=== PATIENT | female | born 1965 | race Hispanic/Latino ===

== ENCOUNTER 2023-08-04 09:52 | Emergency (ER) | payer BC ==
[~2023-08-04] VITALS: Ht 157.5 cm; Wt 113.4 kg
[2023-08-04] MEDS ORDERED: MORPHINE 4 MG SYG IM ONE (11:30)
[2023-08-04 11:51] LABS: BASOPHILS # (AUTO) 0.02 K/uL (0.00-0.20); BASOPHILS % (AUTO) 0.2 % (0.0-5.0); EOSINOPHILS # (AUTO) 0.18 K/uL (0.00-0.70); EOSINOPHILS % (AUTO) 1.9 % (0.0-8.0); HEMATOCRIT 47.9 % (36-48); IMMATURE GRANULOCYTE ABSOLUTE 0.06 K/uL (0-1); LYMPHOCYTES # (AUTO) 2.2 K/uL (1.0-4.8); LYMPHOCYTES % (AUTO) 22.2 % (21.0-51.0); MEAN CORPUSCULAR HEMOGLOBIN 29.5 pg (27.0-33.0); MEAN CORPUSCULAR HGB CONC 31.9 g/dL (32.0-36.0); MEAN CORPUSCULAR VOLUME 92.3 fL (79-99); MONOCYTES # (AUTO) 0.7 K/uL (0.1-1.0); MONOCYTES % (AUTO) 6.7 % (3.0-13.0); NEUTROPHILS # (AUTO) 6.6 K/uL (1.8-7.7); NEUTROPHILS % (AUTO) 68.4 % (40.0-77.0); PLATELET COUNT (AUTO) 198 K/uL (130-400); RED BLOOD CELL COUNT(AUTO) 5.19 MIL/uL (4.00-5.50); RED CELL DISTRIBUTION WIDTH 13.2 % (11.0-15.5); WHITE BLOOD COUNT (AUTO) 9.7 K/uL (4.8-10.8)
[2023-08-04 11:57] LABS: CREATININE 0.7 mg/dL (0.5-1.5); POTASSIUM 4.5 mmol/L (3.5-5.1)
[2023-08-04 12:02] LABS: ALBUMIN 3.4 g/dL (3.5-5.0); BILIRUBIN,TOTAL 0.5 mg/dL (0.2-1.0); TOTAL PROTEIN, SERUM 6.9 g/dL (6.0-8.3); URIC ACID 5.2 mg/dL (2.6-7.2)
[2023-08-04] MEDS ORDERED: DEXAMETHASONE SOD PHOSPHATE 4 MG/ML 1ML VIAL IM ONE (13:00)
[2023-08-04] MEDS ORDERED: PRED20TA3 PO (13:03)
[2023-08-04] MEDS ORDERED: IBUP-2070 PO (13:03)
[2023-08-04 13:33] VITALS: BP 130/60; PULSE 52; RESP 18; O2SAT 97
== END 2023-08-04 13:53 | disposition home or self-care (01) ==
LOC: EDH 09:52
DX: M25.571 Pain in right ankle and joints of right foot (principal); Z90.49 Acquired absence of other specified parts of digestive tract
CPT/HCPCS: 99284; 84550; 80053; 85025; 86140; 36415; 73630; 73502; 96372 ×2; J1100; J2270

== ENCOUNTER 2024-12-15 21:05 | Emergency (ER) | payer BC ==
[~2024-12-15] VITALS: Ht 157.5 cm; Wt 105.7 kg
[~2024-12-15 21:05] MED LIST: IBUP-2070 PO; PRED20TA3 PO
--- NOTE | 2024-12-15 21:08 | NUR ---
UA CUP PROVIDED
--- NOTE | 2024-12-15 22:04 | ERN ---
ED Note History of Present Illness Stated Complaint: ABD PAIN RADIATING TO BACK Chief Complaint: Abdominal Pain Time Seen by MD: 21:34 Time Seen by Midlevel: 21:45 Dictation: Ms. Macho Herrmann is a 59-year-old female with history of obesity who presented to the emergency department this evening for evaluation of abdominal pain. She reports upper/lateral abdominal pain radiating to the back which is worse with position change. She also has tenderness to the right upper quadrant of the abdomen. She does state she had a cholecystectomy in 2013. She also reports at least one year of right low back pain/right hip pain. She denies having any fever, chills, shortness of breath, cough, chest pain, palpitations, edema, nausea, vomiting, diarrhea, dysuria, headache, or dizziness. She denies use of alcohol or recreational drugs. She states she had been taking some Mucinex and some [id number] Tylenol but no more than recommended. Allergies: Coded Allergies: No Known Drug Allergies (Verified Allergy, 12/02/13) Home Meds Active Scripts Prednisone (Prednisone) 20 Mg Tablet, 1 TAB PO AD for 3 Days, #6 TAB 0 Refills TAKE 1 TAB BY MOUTH THREE TIMES PER DAY X1 DAYS, THEN TAKE 1 TAB BY MOUTH TWICE A DAY X1 DAYS, THEN TAKE 1 TAB BY MOUTH ONCE A DAY X1 DAY. Prov:ELI BENSON MD 08/04/23 Ibuprofen (Ibuprofen) 600 Mg Tablet, 600 MG PO Q6H PRN for PAIN, #30 TAB Prov:ELI BENSON MD 08/04/23 Past Medical History Past Medical History: No Pertinent History Surgical History: Cholecystectomy, Other Surgical History Other: RT BREAST MASS PSYCH History: no pertinent psych hx Social History: Negative, Lives with family History: Not Applicable RN Note Reviewed/Agreed w/PFSH: Yes Review of System Dictation REVIEW OF SYSTEMS: CONSTITUTIONAL: Patient denies fevers, chills, sweats and weight changes. EYES: Patient denies any visual symptoms. EARS, NOSE, AND THROAT: No difficulties with hearing. No symptoms of rhinitis or sore throat. CARDIOVASCULAR: Patient denies chest pains, palpitations, orthopnea and paroxysmal nocturnal dyspnea. RESPIRATORY: No dyspnea on exertion, no wheezing or cough. GI: No nausea, vomiting, diarrhea, constipation, hematochezia or melena. Reports right lateral and right upper quadrant abdominal pain radiating to the back : No urinary hesitancy or dribbling. No nocturia or urinary frequency. No abnormal urethral discharge. MUSCULOSKELETAL: Reports right-sided back pain. NEUROLOGIC: No chronic headaches, no seizures. Patient denies numbness, tingling or weakness. PSYCHIATRIC: Patient denies problems with mood disturbance. No problems with anxiety. ENDOCRINE: No excessive urination or excessive thirst. DERMATOLOGIC: Patient denies any rashes or skin changes. Initial Vital Sign VS Vital Signs Date Time Temp Pulse Resp B/P (MAP) Pulse Ox O2 Delivery O2 Flow Rate FiO2 12/15/24 21:06 97.7 80 17 171/98 98 Room Air 12/15/24 23:00 0 21 Physical Exam Dictation Vital signs: Reviewed. Afebrile Constitutional: No acute distress. Non-toxic appearing. Head/Face: Normocephalic, atraumatic. Eyes: Periorbital areas with no swelling, redness, or edema. Lids and lashes are normal. Conjunctival injection is absent. Sclera anicteric. Pupils equal, round, reactive to light. ENT: Pinnas intact and no signs of trauma or erythema. Ear canals clear and no discharge. TMs no erythema. No nasal discharge or bleeding noted. Oropharynx with no exudate, redness, swelling, masses, exudates, or evidence of obstruction. Uvula midline. Mucous membranes moist. Neck: Trachea midline, no masses palpated, and no cervical lymphadenopathy. No swelling. Supple, full range of motion. Chest/Axilla: No tenderness, no crepitus, no paradoxical movement, no retractions. Cardiovascular: Regular rate, regular rhythm, no murmur, no gallops. Symmetric pulses. No peripheral edema. Normotensive Respiratory: Respirations even and unlabored. Lung sounds clear; no wheezes, ra les or rhonchi. Room air SpO2 98% Gastrointestinal: Obese No distention is appreciated. Bowel sounds are normal. Tenderness upon palpation right upper quadrant. T tenderness right lateral abdomen. No rebound. No rigidity. No voluntary or involuntary guarding. No Miranda's sign. Neurological: Normal speech, gross motor function intact, gross sensory function intact. No focal weakness/Paresthesia. Musculoskeletal/Extremities: All extremities have full range of motion, no pain or tenderness on palpation. Symmetric pulses. Integumentary: Intact. Skin is normal color, warm and dry. Cap refill less than 2 seconds. Results (Laboratory/Radiology) Laboratory/Radiology Laboratory Tests Test 12/15/24 22:22 White Blood Count 11.4 K/uL (4.8-10.8) H Red Blood Count 5.13 MIL/uL (4.00-5.50) Hemoglobin 15.1 g/dL (12.0-16.0) Hematocrit 47.4 % (36-48) Mean Corpuscular Volume 92.4 fL (79-99) Mean Corpuscular Hemoglobin 29.4 pg (27.0-33.0) Mean Corpuscular Hemoglobin Concent 31.9 g/dL (32.0-36.0) L Red Cell Distribution Width 12.9 % (11.0-15.5) Platelet Count 181 K/uL (130-400) Mean Platelet Volume 10.9 fL (7.5-10.5) H Immature Granulocyte % (Auto) 0.4 % (0-1) Neutrophils (%) (Auto) 66.6 % (40.0-77.0) Lymphocytes (%) (Auto) 23.6 % (21.0-51.0) Monocytes (%) (Auto) 7.3 % (3.0-13.0) Eosinophils (%) (Auto) 1.9 % (0.0-8.0) Basophils (%) (Auto) 0.2 % (0.0-5.0) Neutrophils # (Auto) 7.6 K/uL (1.8-7.7) Lymphocytes # (Auto) 2.7 K/uL (1.0-4.8) Monocytes # (Auto) 0.8 K/uL (0.1-1.0) Eosinophils # (Auto) 0.22 K/uL (0.00-0.70) Basophils # (Auto) 0.02 K/uL (0.00-0.20) Absolute Immature Granulocyte (auto 0.05 K/uL (0-1) Nucleated Red Blood Cells 0.0 % (0.0-0.19) Urine Color LIGHT-YELLOW (YELLOW) Urine Appearance CLEAR (CLEAR) Urine pH 5.5 (5.0-8.0) Urine Specific [place] 1.015 (1.001-1.031) Urine Protein NEGATIVE mg/dL (NEGATIVE) Urine Glucose (UA) NEGATIVE mg/dL (NEGATIVE) Urine Ketones NEGATIVE mg/dL (NEGATIVE) Urine Occult Blood MODERATE (NEGATIVE) H Urine Nitrate NEGATIVE (NEGATIVE) Urine Bilirubin NEGATIVE mg/dL (NEGATIVE) Urine Urobilinogen 0.2 mg/dL (0.2-1.0) Urine Leukocyte Esterase NEGATIVE Eliot/uL Urine RBC 6-10 /HPF (0-1) H Urine WBC 2-5 /HPF (0-1) H Urine Squamous Epithelial Cells FEW /HPF (0-2) Urine Bacteria None /HPF (None Seen) Sodium Level 133 mmol/L (136-145) L Potassium Level 3.8 mmol/L (3.5-5.1) Chloride Level 96 mmol/L (101-111) L Carbon Dioxide Level 36 mmol/L (21-32) H Blood Urea Nitrogen 13 mg/dL (7-18) Creatinine 0.7 mg/dL (0.5-1.0) Glomerular Filtration Rate Calc 98 mL/min (>90) Random Glucose 119 mg/dL (70-105) H Total Calcium 8.7 mg/dL (8.5-10.1) Total Bilirubin 0.5 mg/dL (0.2-1.0) Direct Bilirubin 0.1 mg/dL (0.0-0.3) Aspartate Amino Transf (AST/SGOT) 42 U/L (10-37) H Alanine Aminotransferase (ALT/SGPT) 52 U/L (12-78) Alkaline Phosphatase 71 U/L (50-136) Total Protein 7.4 g/dL (6.0-8.3) Albumin 3.4 g/dL (3.5-5.0) L Lipase 90 U/L (16-77) H Labs Reviewed?: Yes Ultrasound Comment: RUQ US unremarkable. CBD 5mm per preliminary report CT Scan Comment: PATIENT: ROULA ROSE MR#: [id number] : 1965 SEX: F AGE: 59 LOCATION: [facility] ORDER 27 STATUS: REG ER REPORT#: [id number] SERVICE 23 REASON: abdominal pain, left flank pain, + blood in urine, elevated LFT/lipase ORDERING PHYSICIAN: SHELL SIMPSON NP PROCEDURE: ABD PEL WO - CT ABDOMEN/PELVIS W/O CONTRAST CT ABDOMEN/PELVIS W/O CONTRAST HISTORY: Pain COMPARISON: 12/02/2013 TECHNIQUE: Multiple sequential axial images of the abdomen and pelvis were obtained from the dome of the diaphragm through symphysis pubis. Patient was not given contrast through intravenous route. Oral contrast was not given. FINDINGS: No pleural effusion is seen bilaterally. There is no evidence of parenchymal disease or pulmonary nodule of the visualized lower lungs. Degenerative changes of the thoracolumbar spine are present. The heart is not enlarged. Post cholecystectomy changes are seen. There is ventral hernia with bowel content. No bowel obstruction is seen. The liver is borderline enlarged measuring 16 cm.The liver, spleen, adrenal glands and pancreas are unremarkable. There is no evidence of hydronephrosis bilaterally. No evidence of renal stone is seen. Fecal material is seen in the colon. There are normal size retroperitoneal and mesenteric lymph nodes. No ascites is seen. Atherosclerotic changes are present. Pelvic sidewalls are symmetric bilaterally. Bladder is poorly distended. IMPRESSION: 1. Large ventral hernia with bowel content. No bowel obstruction is seen. CT was performed with one or more following dose reduction techniques: automated exposure control, adjustment of the mA and kv according to patient's size, or use of a iterative reconstruction technique. DICTATED BY: HUNTER GUAJARDO MD DATE: 12/16/246 ELECTRONICALLY SIGNED BY: HUNTER GUAJARDO MD DATE: 12/16/24 005 ED Course ED Course Orders Procedure Category Date Status Time Cbc With Differential LAB 12/15/24 Complete 22:03 Basic Metabolic Panel LAB 12/15/24 Complete 22:03 Hepatic Function Panel LAB 12/15/24 Complete 22:03 Lipase LAB 12/15/24 Complete 22:03 Urinalysis Profile LAB 12/15/24 Complete 22:03 Us Abdominal Ruq\Ltd US 12/15/24 Taken 22:03 Ct Abdomen/Pelvis W/O CT 12/15/24 Resulted Contrast 23:24 Ketorolac PHA 12/15/24 Complete Tromethamine 30mg/Ml 23:30 Current Medications Medications (Trade) Dose Ordered Sig/Peter Route PRN Reason Start Time Stop Time Status Last Admin Dose Admin Ketorolac Tromethamine (toRADol) 30 mg ONCE ONCE IM 12/15/24 23:30 12/15/24 23:31 DC 12/16/24 00:11 Vital Signs Date Time Temp Pulse Resp B/P (MAP) Pulse Ox O2 Delivery O2 Flow Rate FiO2 12/16/24 01:11 63 18 128/56 96 Room Air* 0 21 12/16/24 00:12 59 18 138/65 99 Room Air* 0 21 12/15/24 23:00 98.1 82 18 162/88 98 Room Air* 0 21 12/15/24 21:06 97.7 80 17 171/98 98 Room Air Uneventful ED course. Vital signs remained stable; afebrile. No nausea or vomiting. RUQ ultrasound unremarkable; CBD within normal limits at 5 mm. Laboratory findings as noted below. WBCs 11.4, glucose 1, AST 42, albumin 3.4, Na/Cl 133/96, and lipase 90.1 CT scan of the abdomen and pelvis with IV contrast revealed constipation as well as large ventral hernia. No obstruction appreciated. Findings were discussed with patient and all questions were answered. She was instructed follow up with your PCP as well as general surgeon. Medical Decision Making MDM MDM: Differential diagnosis: UTI, kidney stone, diverticulitis, biliary colic, pancreatitis Rationale: Tests considered and ordered secondary to shared decision making inc lude: Lab, ultrasound, CT Previous outside records reviewed: Old ER visits. Risk of complication and/or morbidity or mortality of patient management: None Medications-Per medication reconciliation Need for hospitalization: Patient does not meet criteria for hospitalization. Need for emergency major/minor surgery: No There are no social concerns with this patient. Prescription drug management: OTC Tylenol or ibuprofen for discomfort, Miralax Prescriptions will include symptomatic care Patient's prior external medical records from other ER visits were reviewed by me as indicated. Prior testing and results from previous visits were reviewed. Prior tests were taken into account with medical decision making and resource utilization, independent historian/historians were used to obtain complete medical history. I independently interpreted the test that were performed, results were reviewed by me and considered findings on radiology if ordered. Medical management and examination interpretation discussions were had by me with other qualified healthcare professionals as indicated for the patient's care. DX & DISP Disposition: Discharge Departure Impression: Primary Impression: Ventral hernia Additional Impressions: Abdominal pain, Constipation, Elevated AST (SGOT), Elevated lipase Condition: Stable Scripts Polyethylene Glycol 3350 (Miralax) 17 Gram Powd.pack 1 PACKET PO DAILY for constipation, #7 PACKET 0 Refills dissolve in water Prov: SHELL SIMPSON NP 12/16/24 Additional Instructions: Drink plenty of fluids. Increase dietary fiber. Start MiraLax daily. Continue your weight loss initiatives. Recommend follow up with your PCP as well as general surgeon for further evaluation of ventral hernia. (take copies of CT and labs). May take [id number] Tylenol or ibuprofen as needed for discomfort. Return to the emergency department for any worsening of symptoms or concerns Referrals: SANTHOSH GIVENS MD (PCP) FRANCOIS MULTANI DO Time of Disposition: 01:22 SHELL SIMPSON NP Dec 15, 2024 22:04
[2024-12-15 22:43] LABS: BASOPHILS # (AUTO) 0.02 K/uL (0.00-0.20); BASOPHILS % (AUTO) 0.2 % (0.0-5.0); EOSINOPHILS # (AUTO) 0.22 K/uL (0.00-0.70); EOSINOPHILS % (AUTO) 1.9 % (0.0-8.0); HEMATOCRIT 47.4 % (36-48); IMMATURE GRANULOCYTE ABSOLUTE 0.05 K/uL (0-1); LYMPHOCYTES # (AUTO) 2.7 K/uL (1.0-4.8); LYMPHOCYTES % (AUTO) 23.6 % (21.0-51.0); MEAN CORPUSCULAR HEMOGLOBIN 29.4 pg (27.0-33.0); MEAN CORPUSCULAR HGB CONC 31.9 g/dL (32.0-36.0); MEAN CORPUSCULAR VOLUME 92.4 fL (79-99); MONOCYTES # (AUTO) 0.8 K/uL (0.1-1.0); MONOCYTES % (AUTO) 7.3 % (3.0-13.0); NEUTROPHILS # (AUTO) 7.6 K/uL (1.8-7.7); NEUTROPHILS % (AUTO) 66.6 % (40.0-77.0); PLATELET COUNT (AUTO) 181 K/uL (130-400); RED BLOOD CELL COUNT(AUTO) 5.13 MIL/uL (4.00-5.50); RED CELL DISTRIBUTION WIDTH 12.9 % (11.0-15.5); WHITE BLOOD COUNT (AUTO) 11.4 K/uL (4.8-10.8)
[2024-12-15 22:44] LABS: APPEARANCE,URINE CLEAR (CLEAR); BILIRUBIN,URINE NEGATIVE (NEGATIVE); COLOR,URINE LIGHT-YELLOW (YELLOW); GLUCOSE, URINE (UA) NEGATIVE (NEGATIVE); KETONES,URINE NEGATIVE (NEGATIVE); LEUKOCYTE ESTERASE ,URINE NEGATIVE Leu/uL (NEGATIVE); NITRATE,URINE NEGATIVE (NEGATIVE); OCCULT BLOOD,URINE MODERATE (NEGATIVE); PH,URINE 5.5 (5.0-8.0); PROTEIN,URINE NEGATIVE (NEGATIVE); UROBILINOGEN,URINE 0.2 mg/dL (0.2-1.0)
[2024-12-15 22:46] LABS: ADD UA MICROSCOPIC YES
[2024-12-15 22:47] LABS: MUCUS,URINE RARE LPF (None Seen); SQUAMOUS EPITHELIAL CELL,UR FEW /HPF (0-2)
[2024-12-15 23:00] VITALS: TEMP 98.1
[2024-12-15 23:02] LABS: CREATININE 0.7 mg/dL (0.5-1.0); POTASSIUM 3.8 mmol/L (3.5-5.1)
[2024-12-15 23:06] LABS: ALBUMIN 3.4 g/dL (3.5-5.0); BILIRUBIN,DIRECT 0.1 mg/dL (0.0-0.3); BILIRUBIN,TOTAL 0.5 mg/dL (0.2-1.0); TOTAL PROTEIN, SERUM 7.4 g/dL (6.0-8.3)
[2024-12-16] MEDS: ketOROlac 30MG VIAL (30MG/ML) IM ONE (00:11)
--- NOTE | 2024-12-16 00:34 | NUR ---
PATIENT TAKEN TO CT SCAN AT THIS TIME.
--- NOTE | 2024-12-16 00:52 | HMCIMG ---
CT ABDOMEN/PELVIS W/O CONTRAST HISTORY: Pain COMPARISON: 12/02/2013 TECHNIQUE: Multiple sequential axial images of the abdomen and pelvis were obtained from the dome of the diaphragm through symphysis pubis. Patient was not given contrast through intravenous route. Oral contrast was not given. FINDINGS: No pleural effusion is seen bilaterally. There is no evidence of parenchymal disease or pulmonary nodule of the visualized lower lungs. Degenerative changes of the thoracolumbar spine are present. The heart is not enlarged. Post cholecystectomy changes are seen. There is ventral hernia with bowel content. No bowel obstruction is seen. The liver is borderline enlarged measuring 16 cm.The liver, spleen, adrenal glands and pancreas are unremarkable. There is no evidence of hydronephrosis bilaterally. No evidence of renal stone is seen. Fecal material is seen in the colon. There are normal size retroperitoneal and mesenteric lymph nodes. No ascites is seen. Atherosclerotic changes are present. Pelvic sidewalls are symmetric bilaterally. Bladder is poorly distended. IMPRESSION: 1. Large ventral hernia with bowel content. No bowel obstruction is seen. CT was performed with one or more following dose reduction techniques: automated exposure control, adjustment of the mA and kv according to patient's size, or use of a iterative reconstruction technique.
[2024-12-16 01:11] VITALS: BP 128/56; PULSE 63; RESP 18; O2SAT 96
[2024-12-16] MEDS ORDERED: POLY17PO4 PO (01:35)
--- NOTE | 2024-12-16 10:23 | HMCIMG ---
ULTRASOUND ABDOMEN LIMITED INDICATION: Right upper abdominal pain COMPARISON: 12/02/2013 FINDINGS: Examination is slightly limited secondary to patient body habitus. The liver is normal in size and increased in echogenicity; no focal lesion demonstrated. Main portal vein is patent, and normal direction of vascular flow demonstrated. The common bile duct diameter measures 5.0 mm. Gallbladder is surgically absent. Visible portions of the pancreas appear normal. The right kidney measures 9.8 x 4.6 x 5.4 cm,and is normal in echogenicity, without evidence for hydronephrosis.No shadowing stones demonstrated. No free fluid demonstrated. IMPRESSION: Findings suggesting hepatic steatosis.
== END 2024-12-16 02:01 | disposition home or self-care (01) ==
LOC: EDH 21:05
DX: K43.9 Ventral hernia without obstruction or gangrene (principal); R10.9 Unspecified abdominal pain; K59.00 Constipation, unspecified; R74.8 Abnormal levels of other serum enzymes; Z90.49 Acquired absence of other specified parts of digestive tract
CPT/HCPCS: 99285; 74176; 76705; 80076; 80048; 83690; 85025; 81001; 36415; 96372; J1885